=== PATIENT | female | born 1940 | race Two or more races ===

== ENCOUNTER 2025-01-23 18:38 | Outpatient (CLI) | payer MEDICARE, SELFPAY | END 2025-01-23 18:39 | disposition home or self-care (01) | LOC: LKVREF 18:43 | PROVIDERS: Visit Provider Family Medicine | DX: E03.8 Other specified hypothyroidism (principal); E78.00 Pure hypercholesterolemia, unspecified; F41.8 Other specified anxiety disorders; I10 Essential (primary) hypertension; R53.83 Other fatigue | CPT/HCPCS: 80053; 80061; 84443 ==